=== PATIENT | female | born 1965 | race Caucasian/White ===

== ENCOUNTER → 2017-10-22 | Outpatient (CLI) | payer BC ==
--- NOTE | 2017-10-22 10:24 | DIAGNOSTIC IMAGING REPORT ---
[facility] HISTORY: Nephrolithiasis. COMPARISON: [facility] 10/18/2015. FINDINGS: The bowel gas pattern is unremarkable. There are no dilated loops of small bowel to suggest an obstruction. No ureteral calculi. Bilateral nephrolithiasis. Dominant stone within the left kidney measures 4 mm. Dominant stone within the mid right kidney measures 4 mm. There are are a few additional punctate bilateral renal calculi. Calcifications in the deep pelvis likely represent phleboliths. These remain unchanged. No pneumoperitoneum or pneumatosis. IMPRESSION: Bilateral nephrolithiasis. These are not significantly changed. No ureteral calculi. Electronically signed by: Aries Oconnor M.D. 10/22/2017 10:23 AM Dictated Date/Time: 10/22/2017 10:21 AM
== END | disposition home or self-care (01) ==
LOC: C.RAD 09:24
PROVIDERS: ATTEND Urology
DX: N20.0 Calculus of kidney (principal)